=== PATIENT | female | born 1960 | race Caucasian/White ===

== ENCOUNTER 2017-08-10 07:52 | Outpatient (CLI) | payer OTHER ==
[~2017-08-10 07:52] MED LIST: MEDROL PO
== END 2017-08-10 15:33 | disposition home or self-care (01) ==
LOC: SONOGRAMA 07:52
DX: R10.10 Upper abdominal pain, unspecified (principal)

== ENCOUNTER 2017-08-12 07:30 | Outpatient (CLI) | payer OTHER | END 2017-08-12 15:43 | disposition home or self-care (01) | LOC: TOM 07:30 | DX: R10.10 Upper abdominal pain, unspecified (principal); Z86.010 Personal history of colon polyps ==

== ENCOUNTER → 2017-11-24 | Outpatient (CLI) | payer OTHER ==
[~2017-11-24] MED LIST changes: +ORPHENADRI30 MG/1 M1 IM; +TORADOL60 MG IM
== END | disposition home or self-care (01) ==
LOC: LAB 11-22 14:23
DX: D64.9 Anemia, unspecified (principal); E78.2 Mixed hyperlipidemia; E03.9 Hypothyroidism, unspecified; N39.0 Urinary tract infection, site not specified; E55.9 Vitamin D deficiency, unspecified; L68.8 Other hypertrichosis

== ENCOUNTER 2017-12-22 14:26 | Outpatient (CLI) | payer OTHER | END 2017-12-22 14:36 | disposition home or self-care (01) | LOC: NUCLEAR 14:26 | DX: M81.0 Age-related osteoporosis without current pathological fracture (principal) ==

== ENCOUNTER 2018-03-09 15:47 | Outpatient (CLI) | payer OTHER | END 2018-03-09 15:52 | disposition home or self-care (01) | LOC: LAB 15:47 | DX: N95.0 Postmenopausal bleeding (principal) ==

== ENCOUNTER 2018-07-14 15:42 | Outpatient (CLI) | payer OTHER | END 2018-07-14 15:50 | disposition home or self-care (01) | LOC: LAB 15:42 | DX: N95.1 Menopausal and female climacteric states (principal) ==

== ENCOUNTER 2018-09-06 07:12 | Outpatient (CLI) | payer OTHER | END 2018-09-06 07:20 | disposition home or self-care (01) | LOC: LAB 07:12 | DX: N20.0 Calculus of kidney (principal); Z11.3 Encounter for screening for infections with a predominantly sexual mode of transmission ==

== ENCOUNTER 2018-09-08 07:11 | Outpatient (CLI) | payer OTHER | END 2018-09-08 08:04 | disposition home or self-care (01) | LOC: TOM 07:11 | DX: R93.3 Abnormal findings on diagnostic imaging of other parts of digestive tract (principal); Z86.010 Personal history of colon polyps ==

== ENCOUNTER 2018-10-16 07:20 | Outpatient (CLI) | payer OTHER | END 2018-10-16 09:32 | disposition home or self-care (01) | LOC: LAB 07:20 | DX: D50.8 Other iron deficiency anemias (principal); E03.8 Other specified hypothyroidism; E78.2 Mixed hyperlipidemia; I11.9 Hypertensive heart disease without heart failure; E56.8 Deficiency of other vitamins; N39.0 Urinary tract infection, site not specified; Z12.11 Encounter for screening for malignant neoplasm of colon; R19.5 Other fecal abnormalities; E55.9 Vitamin D deficiency, unspecified; N19 Unspecified kidney failure; E11.9 Type 2 diabetes mellitus without complications; R80.8 Other proteinuria; C18.0 Malignant neoplasm of cecum; K92.1 Melena ==

== ENCOUNTER → 2018-11-14 | Outpatient (CLI) | payer OTHER | END | disposition home or self-care (01) | LOC: NUCLEAR 07:00 | DX: K81.1 Chronic cholecystitis (principal) | CPT/HCPCS: 78227; A9537 ==

== ENCOUNTER 2018-12-05 12:24 | Outpatient (CLI) | payer OTHER | END 2018-12-05 12:34 | disposition home or self-care (01) | LOC: LAB 12:24 | DX: D78.89 Other postprocedural complications of the spleen (principal); E53.8 Deficiency of other specified B group vitamins; D64.89 Other specified anemias; N95.1 Menopausal and female climacteric states ==

== ENCOUNTER → 2019-02-05 09:40 | Outpatient (CLI) | payer OTHER | END | disposition home or self-care (01) | LOC: LAB 09:40 | DX: J11.1 Influenza due to unidentified influenza virus with other respiratory manifestations (principal); R50.9 Fever, unspecified; A49.3 Mycoplasma infection, unspecified site ==

== ENCOUNTER → 2019-04-26 10:20 | Outpatient (CLI) | payer OTHER | END | disposition home or self-care (01) | LOC: LAB 10:20 | DX: J11.1 Influenza due to unidentified influenza virus with other respiratory manifestations (principal) ==

== ENCOUNTER 2019-05-08 08:31 | Outpatient (CLI) | payer OTHER | END 2019-05-08 17:00 | disposition home or self-care (01) | LOC: MAMO-SONO 08:31 | DX: Z12.31 Encounter for screening mammogram for malignant neoplasm of breast (principal); R10.2 Pelvic and perineal pain; N60.11 Diffuse cystic mastopathy of right breast; N60.12 Diffuse cystic mastopathy of left breast; Z87.898 Personal history of other specified conditions ==

== ENCOUNTER → 2019-05-11 08:46 | Outpatient (CLI) | payer OTHER | END | disposition home or self-care (01) | LOC: LAB 08:46 | DX: D64.89 Other specified anemias (principal); E78.00 Pure hypercholesterolemia, unspecified; N39.0 Urinary tract infection, site not specified; E03.8 Other specified hypothyroidism; D68.8 Other specified coagulation defects ==

== ENCOUNTER 2019-05-22 07:22 | Outpatient (CLI) | payer OTHER | END 2019-05-22 08:00 | disposition home or self-care (01) | LOC: MRI 07:22 | DX: N95.0 Postmenopausal bleeding (principal); D25.0 Submucous leiomyoma of uterus; R10.2 Pelvic and perineal pain | CPT/HCPCS: 72197 ==

== ENCOUNTER 2019-05-25 07:33 | Outpatient (CLI) | payer OTHER | END 2019-05-25 07:40 | disposition home or self-care (01) | LOC: LAB 07:33 | DX: N39.0 Urinary tract infection, site not specified (principal); E55.9 Vitamin D deficiency, unspecified; E78.2 Mixed hyperlipidemia; D64.89 Other specified anemias; E03.8 Other specified hypothyroidism; E78.00 Pure hypercholesterolemia, unspecified; N95.1 Menopausal and female climacteric states; R68.82 Decreased libido; N91.1 Secondary amenorrhea; N83.209 Unspecified ovarian cyst, unspecified side; R10.2 Pelvic and perineal pain; D25.1 Intramural leiomyoma of uterus ==

== ENCOUNTER → 2019-08-24 | Outpatient (CLI) | payer OTHER | END | disposition home or self-care (01) | LOC: SONOGRAMA 08:26 | DX: R10.2 Pelvic and perineal pain (principal) ==

== ENCOUNTER 2019-11-21 11:44 | Outpatient (CLI) | payer OTHER | END 2019-11-21 11:57 | disposition home or self-care (01) | LOC: LAB 11:44 | DX: E03.8 Other specified hypothyroidism (principal); E56.8 Deficiency of other vitamins; E55.9 Vitamin D deficiency, unspecified; E34.8 Other specified endocrine disorders; E78.2 Mixed hyperlipidemia; N95.1 Menopausal and female climacteric states; N91.1 Secondary amenorrhea; N95.8 Other specified menopausal and perimenopausal disorders ==

== ENCOUNTER 2020-01-28 07:44 | Outpatient (CLI) | payer OTHER | END 2020-01-28 15:00 | disposition home or self-care (01) | LOC: LAB 07:44 | DX: N95.1 Menopausal and female climacteric states (principal); E03.8 Other specified hypothyroidism ==

== ENCOUNTER → 2020-04-22 07:00 | Outpatient (CLI) | payer OTHER | END | disposition home or self-care (01) | LOC: PPH VACUNA 07:00 | DX: Z23 Encounter for immunization (principal) ==

== ENCOUNTER 2020-07-29 15:12 | Outpatient (CLI) | payer OTHER | END 2020-07-29 18:00 | disposition home or self-care (01) | LOC: LAB 15:12 | PROVIDERS: ATTEND General Practice | DX: R05 Cough (principal); Z11.3 Encounter for screening for infections with a predominantly sexual mode of transmission; N95.1 Menopausal and female climacteric states ==

== ENCOUNTER → 2020-09-12 | Outpatient (CLI) | payer OTHER | END | disposition home or self-care (01) | LOC: TOM 16:21 | PROVIDERS: ATTEND Otolaryngology Facial Plastic Surgery | DX: J32.8 Other chronic sinusitis (principal); M95.0 Acquired deformity of nose; J34.2 Deviated nasal septum; J34.3 Hypertrophy of nasal turbinates; R09.82 Postnasal drip ==

== ENCOUNTER 2020-11-10 08:07 | Outpatient (CLI) | payer OTHER | END 2020-11-10 08:24 | disposition home or self-care (01) | LOC: MAMO-SONO 08:07 | PROVIDERS: ATTEND Obstetrics & Gynecology Gynecology | DX: Z12.31 Encounter for screening mammogram for malignant neoplasm of breast (principal); N64.4 Mastodynia; N64.59 Other signs and symptoms in breast ==

== ENCOUNTER 2021-03-11 11:06 | Outpatient (CLI) | payer OTHER | END 2021-03-11 11:10 | disposition home or self-care (01) | LOC: LAB 11:06 | PROVIDERS: ATTEND Emergency Medicine Pediatric Emergency Medicine | DX: Z03.818 Encounter for observation for suspected exposure to other biological agents ruled out (principal) ==

== ENCOUNTER 2021-03-16 14:28 | Outpatient (CLI) | payer OTHER | END 2021-03-16 15:00 | disposition home or self-care (01) | LOC: LAB 14:28 | PROVIDERS: ATTEND Emergency Medicine Pediatric Emergency Medicine | DX: Z03.818 Encounter for observation for suspected exposure to other biological agents ruled out (principal) ==

== ENCOUNTER → 2021-04-24 08:23 | Outpatient (CLI) | payer OTHER | END | disposition home or self-care (01) | LOC: LAB 08:23 | PROVIDERS: ATTEND Internal Medicine Gastroenterology | DX: E03.8 Other specified hypothyroidism (principal); E78.49 Other hyperlipidemia; R10.84 Generalized abdominal pain; K62.5 Hemorrhage of anus and rectum; K50.10 Crohn's disease of large intestine without complications; K52.89 Other specified noninfective gastroenteritis and colitis ==

== ENCOUNTER → 2021-04-24 08:49 | Outpatient (CLI) | payer OTHER | END | disposition home or self-care (01) | LOC: SONOGRAMA 08:49 | PROVIDERS: ATTEND Internal Medicine Gastroenterology | DX: R10.84 Generalized abdominal pain (principal) ==

== ENCOUNTER 2021-05-04 11:03 | Outpatient (CLI) | payer OTHER | END 2021-05-04 11:22 | disposition home or self-care (01) | LOC: LAB 11:03 | PROVIDERS: ATTEND Internal Medicine Gastroenterology | DX: E03.8 Other specified hypothyroidism (principal); E78.49 Other hyperlipidemia; R10.84 Generalized abdominal pain; K62.5 Hemorrhage of anus and rectum; K50.10 Crohn's disease of large intestine without complications; K52.89 Other specified noninfective gastroenteritis and colitis ==

== ENCOUNTER → 2021-05-05 | Outpatient (CLI) | payer OTHER | END | disposition home or self-care (01) | LOC: PPH VACUNA 08:00 | PROVIDERS: ATTEND Emergency Medicine Pediatric Emergency Medicine | DX: Z23 Encounter for immunization (principal) ==

== ENCOUNTER 2021-05-06 08:00 | Outpatient (CLI) | payer OTHER | END 2021-05-06 08:15 | disposition home or self-care (01) | LOC: PPH VACUNA 08:00 | PROVIDERS: ATTEND Emergency Medicine Pediatric Emergency Medicine | DX: Z23 Encounter for immunization (principal) ==

== ENCOUNTER 2021-07-03 09:11 | Outpatient (CLI) | payer OTHER | END 2021-07-03 09:12 | disposition home or self-care (01) | LOC: LAB 09:11 | PROVIDERS: ATTEND Obstetrics & Gynecology Gynecology | DX: N95.1 Menopausal and female climacteric states (principal); E03.8 Other specified hypothyroidism; E78.2 Mixed hyperlipidemia; E55.9 Vitamin D deficiency, unspecified; E56.8 Deficiency of other vitamins; Z13.1 Encounter for screening for diabetes mellitus; R30.0 Dysuria; D51.8 Other vitamin B12 deficiency anemias ==

== ENCOUNTER 2021-07-16 06:54 | Outpatient (CLI) | payer OTHER | END 2021-07-16 07:15 | disposition home or self-care (01) | LOC: MRI 06:54 | PROVIDERS: ATTEND Internal Medicine Gastroenterology | DX: K82.8 Other specified diseases of gallbladder (principal); D18.03 Hemangioma of intra-abdominal structures; K76.89 Other specified diseases of liver | CPT/HCPCS: 74182 ==

== ENCOUNTER 2021-07-27 16:18 | Outpatient (CLI) | payer OTHER | END 2021-07-27 20:20 | disposition home or self-care (01) | LOC: LAB 16:18 | PROVIDERS: ATTEND General Practice | DX: Z20.828 Contact with and (suspected) exposure to other viral communicable diseases (principal) ==

== ENCOUNTER 2021-07-31 10:19 | Outpatient (CLI) | payer OTHER | END 2021-07-31 10:24 | disposition home or self-care (01) | LOC: LAB 10:19 | PROVIDERS: ATTEND General Practice | DX: R05.8 Other specified cough (principal); R50.9 Fever, unspecified; R06.02 Shortness of breath; Z03.818 Encounter for observation for suspected exposure to other biological agents ruled out; Z20.822 Contact with and (suspected) exposure to COVID-19 ==

== ENCOUNTER 2021-11-17 08:00 | Outpatient (CLI) | payer OTHER | END 2021-11-17 08:30 | disposition home or self-care (01) | LOC: PPH VACUNA 08:00 | PROVIDERS: ATTEND Emergency Medicine Pediatric Emergency Medicine | DX: Z23 Encounter for immunization (principal) ==

== ENCOUNTER 2021-12-25 08:07 | Outpatient (CLI) | payer OTHER | END 2021-12-25 08:13 | disposition home or self-care (01) | LOC: LAB 08:07 | PROVIDERS: ATTEND Obstetrics & Gynecology Gynecology | DX: N25.1 Nephrogenic diabetes insipidus (principal) ==

== ENCOUNTER 2022-02-13 12:51 | Outpatient (CLI) | payer OTHER | END 2022-02-13 12:55 | disposition home or self-care (01) | LOC: LAB 12:51 | DX: Z20.828 Contact with and (suspected) exposure to other viral communicable diseases (principal) ==

== ENCOUNTER 2022-03-16 08:34 | Outpatient (CLI) | payer OTHER | END 2022-03-16 09:10 | disposition home or self-care (01) | LOC: MAMO-SONO 08:34 | PROVIDERS: ATTEND Obstetrics & Gynecology Gynecology | DX: Z12.31 Encounter for screening mammogram for malignant neoplasm of breast (principal); N95.1 Menopausal and female climacteric states ==

== ENCOUNTER 2022-04-14 09:10 | Outpatient (CLI) | payer OTHER | END 2022-04-14 09:15 | disposition home or self-care (01) | LOC: PPH VACUNA 09:10 | PROVIDERS: ATTEND Emergency Medicine Pediatric Emergency Medicine | DX: Z23 Encounter for immunization (principal) ==

== ENCOUNTER 2022-04-14 09:24 | Outpatient (CLI) | payer OTHER | END 2022-04-14 15:35 | disposition home or self-care (01) | LOC: RAD 09:24 | PROVIDERS: ATTEND Physical Medicine & Rehabilitation | DX: M17.0 Bilateral primary osteoarthritis of knee (principal) ==

== ENCOUNTER 2022-05-05 07:11 | Outpatient (CLI) | payer OTHER | END 2022-05-05 07:12 | disposition home or self-care (01) | LOC: LAB 07:11 | PROVIDERS: ATTEND General Practice | DX: Z00.00 Encounter for general adult medical examination without abnormal findings (principal); E78.5 Hyperlipidemia, unspecified; E55.9 Vitamin D deficiency, unspecified; N39.0 Urinary tract infection, site not specified; R42 Dizziness and giddiness; R10.9 Unspecified abdominal pain; R10.2 Pelvic and perineal pain ==

== ENCOUNTER → 2022-05-12 09:53 | Outpatient (CLI) | payer OTHER | END | disposition home or self-care (01) | LOC: LAB 09:53 | PROVIDERS: ATTEND Dermatology | DX: Z20.822 Contact with and (suspected) exposure to COVID-19 (principal) ==

== ENCOUNTER 2022-09-15 07:02 | Outpatient (CLI) | payer OTHER | END 2022-09-15 07:03 | disposition home or self-care (01) | LOC: LAB 07:02 | PROVIDERS: ATTEND Dermatology | DX: Z20.822 Contact with and (suspected) exposure to COVID-19 (principal) ==

== ENCOUNTER 2022-10-04 | Outpatient (CLI) | payer OTHER | END 2022-10-04 00:15 | disposition home or self-care (01) | LOC: PPH VACUNA | PROVIDERS: ATTEND Emergency Medicine Pediatric Emergency Medicine | DX: Z23 Encounter for immunization (principal) ==

== ENCOUNTER 2023-03-08 09:19 | Outpatient (CLI) | payer OTHER | END 2023-03-08 09:23 | disposition home or self-care (01) | LOC: LAB 09:19 | PROVIDERS: ATTEND General Practice | DX: E78.5 Hyperlipidemia, unspecified (principal); E55.9 Vitamin D deficiency, unspecified; N39.0 Urinary tract infection, site not specified; R10.9 Unspecified abdominal pain; R42 Dizziness and giddiness; Z00.00 Encounter for general adult medical examination without abnormal findings ==

== ENCOUNTER 2023-03-22 08:58 | Outpatient (CLI) | payer OTHER | END 2023-03-22 09:10 | disposition home or self-care (01) | LOC: MAMO-SONO 08:58 | PROVIDERS: ATTEND General Practice | DX: N64.4 Mastodynia (principal); Z12.31 Encounter for screening mammogram for malignant neoplasm of breast ==

== ENCOUNTER 2023-06-08 07:44 | Outpatient (CLI) | payer OTHER ==
[2023-06-08 08:31] LABS: HEMATOCRIT 40.1 % (36.0-45.00); HEMOGLOBIN 14.1 g/dL (12.0-15.00); MEAN CELL VOLUME 90.4 fL (80.00-100.00); MEAN CORPUSCULAR HEMOGLOBIN 31.7 pg (27.00-32.0); MEAN CORPUSCULAR HGB CONC 35.1 g/dl (32.0-36.0); PLATELET COUNT 206 K/uL (150-450); RED BLOOD COUNT 4.44 M/uL (4.00-6.00); RED CELL DISTRIBUTION WIDTH 12.7 % (11.5-14.5)
== END 2023-06-08 07:55 | disposition home or self-care (01) ==
LOC: LAB 07:44
DX: N95.1 Menopausal and female climacteric states (principal); Z88.2 Allergy status to sulfonamides

== ENCOUNTER 2024-03-07 08:48 | Outpatient (CLI) | payer OTHER | END 2024-03-07 08:57 | disposition home or self-care (01) | LOC: MAMO-SONO 08:48 | PROVIDERS: ATTEND Obstetrics & Gynecology Gynecology | DX: N64.4 Mastodynia (principal) ==

== ENCOUNTER → 2024-03-07 10:14 | Outpatient (CLI) | payer OTHER ==
[2024-03-08 09:11] LABS: TESTOSTERONE,TOTAL < 3.00 ng/dL (3-67)
== END | disposition home or self-care (01) ==
LOC: LAB 10:14
PROVIDERS: ATTEND Obstetrics & Gynecology Gynecology
DX: N95.1 Menopausal and female climacteric states (principal)

== ENCOUNTER 2024-04-17 07:14 | Outpatient (CLI) | payer OTHER ==
[2024-04-17 07:58] LABS: HEMATOCRIT 41.7 % (36.0-45.00); HEMOGLOBIN 14.1 g/dL (12.0-15.00); MEAN CELL VOLUME 92.9 fL (80.00-100.00); MEAN CORPUSCULAR HEMOGLOBIN 31.3 pg (27.00-32.0); MEAN CORPUSCULAR HGB CONC 33.7 g/dl (32.0-36.0); PLATELET COUNT 177 K/uL (150-450); RED BLOOD COUNT 4.49 M/uL (4.00-6.00); RED CELL DISTRIBUTION WIDTH 12.4 % (11.5-14.5)
[2024-04-17 08:16] LABS: URINE APPEARANCE Clear; URINE BILIRRUBIN Negative (NEGATIVE); URINE BLOOD Negative; URINE COLOR Yellow; URINE GLUCOSE Negative (NEGATIVE); URINE KETONE Negative (NEGATIVE); URINE LEUKOCYTE Negative; URINE NITRATE Negative; URINE PROTEIN Negative (NEGATIVE); URINE UROBILINOGEN 0.2 E.U./dl
[2024-04-17 08:20] LABS: URINE BACTERIA 210.4 uL (0.0-1933); URINE EPITHELIAL CELLS 4.7 uL (0.0-38.8); URINE RBC 5.9 uL (0.0-20.8); URINE WBC 3.8 uL (0.0-23.2)
[2024-04-17 08:37] LABS: ALBUMIN 4.3 gm/dL (3.4-5.0); BILIRUBIN TOTAL 0.54 mg/dL (0.3-1.2); CALCIUM 9.5 mg/dL (8.5-10.1); CREATININE SERUM 0.64 mg/dL (0.55-1.02); GFR 93.13; PHOSPHOROUS 3.2 mg/dL (2.5-4.9); POTASSIUM 4.76 mEq/L (3.5-5.1); TOTAL PROTEIN 7.3 gm/dL (6.4-8.2); URIC ACID 4.4 mg/dL (2.5-7.5)
[2024-04-17 08:44] LABS: INR 1.02; PARTIAL THROMBOPLASTIN TIME 26.2 SECONDS (22.0-34.0); PROTHROMBIN TIME 11.1 SECONDS (9.0-11.5)
[2024-04-19 05:06] LABS: hav igm Negative (Negative); hcv Non Reactive (Non Reactive); hep b c Negative (Negative); hep b s ag Negative (Negative)
== END 2024-04-17 07:15 | disposition home or self-care (01) ==
LOC: LAB 07:14
PROVIDERS: ATTEND Plastic Surgery Surgery of the Hand
DX: D68.8 Other specified coagulation defects (principal); E78.00 Pure hypercholesterolemia, unspecified; E83.51 Hypocalcemia; Z11.4 Encounter for screening for human immunodeficiency virus [HIV]; B97.89 Other viral agents as the cause of diseases classified elsewhere; A64 Unspecified sexually transmitted disease; K71.6 Toxic liver disease with hepatitis, not elsewhere classified; E83.30 Disorder of phosphorus metabolism, unspecified; N91.2 Amenorrhea, unspecified; E03.9 Hypothyroidism, unspecified; Z72.89 Other problems related to lifestyle

== ENCOUNTER → 2024-04-17 | Outpatient (CLI) | payer OTHER | END | disposition home or self-care (01) | LOC: RAD 08:10 | PROVIDERS: ATTEND Plastic Surgery Surgery of the Hand | DX: Z01.818 Encounter for other preprocedural examination (principal) ==

== ENCOUNTER → 2024-08-09 06:12 | Outpatient (CLI) | payer OTHER ==
[2024-08-09 07:39] LABS: HEMATOCRIT 39.4 % (36.0-45.00); HEMOGLOBIN 13.3 g/dL (12.0-15.00); MEAN CELL VOLUME 90.3 fL (80.00-100.00); MEAN CORPUSCULAR HEMOGLOBIN 30.5 pg (27.00-32.0); MEAN CORPUSCULAR HGB CONC 33.8 g/dl (32.0-36.0); PLATELET COUNT 181 K/uL (150-450); RED BLOOD COUNT 4.36 M/uL (4.00-6.00); RED CELL DISTRIBUTION WIDTH 12.9 % (11.5-14.5)
[2024-08-09 07:42] LABS: URINE APPEARANCE Clear; URINE BACTERIA 30.5 uL (0.0-1933); URINE BILIRRUBIN Negative (NEGATIVE); URINE BLOOD Negative; URINE COLOR Yellow; URINE GLUCOSE Negative (NEGATIVE); URINE KETONE Negative (NEGATIVE); URINE LEUKOCYTE Negative; URINE NITRATE Negative; URINE PROTEIN Negative (NEGATIVE); URINE UROBILINOGEN 0.2 E.U./dl; URINE WBC 2.6 uL (0.0-23.2)
[2024-08-09 07:45] LABS: URINE EPITHELIAL CELLS 1.2 uL (0.0-38.8)
[2024-08-09 07:47] LABS: ob NEGATIVE (NEGATIVE)
[2024-08-09 07:56] LABS: INR 1.02; PARTIAL THROMBOPLASTIN TIME 25.6 SECONDS (22.0-34.0); PROTHROMBIN TIME 11.1 SECONDS (9.0-11.5)
[2024-08-09 08:44] LABS: BILIRUBIN TOTAL 0.62 mg/dL (0.3-1.2); CALCIUM 9.5 mg/dL (8.5-10.1); CREATININE SERUM 0.56 mg/dL (0.55-1.02); GFR 108.64; GLOBULINA 3.2 G/DL (2.4-3.5); POTASSIUM 4.4 mEq/L (3.5-5.1); TOTAL PROTEIN 7.2 gm/dL (6.4-8.2); TSH 2.15 uIU/mL (0.358-3.74)
[2024-08-09 08:47] LABS: C-REACTIVE PROTEIN 2.31 MG/DL (0.00-0.29)
== END | disposition home or self-care (01) ==
LOC: LAB 06:12
PROVIDERS: ATTEND Internal Medicine
DX: D64.9 Anemia, unspecified (principal); R10.9 Unspecified abdominal pain; E03.9 Hypothyroidism, unspecified; E78.5 Hyperlipidemia, unspecified; R07.9 Chest pain, unspecified; E11.9 Type 2 diabetes mellitus without complications; Z79.01 Long term (current) use of anticoagulants; D50.9 Iron deficiency anemia, unspecified; E78.2 Mixed hyperlipidemia; I11.9 Hypertensive heart disease without heart failure; E56.8 Deficiency of other vitamins; N39.0 Urinary tract infection, site not specified; Z12.11 Encounter for screening for malignant neoplasm of colon; R19.5 Other fecal abnormalities; E55.9 Vitamin D deficiency, unspecified; N19 Unspecified kidney failure

== ENCOUNTER 2024-08-09 06:49 | Outpatient (CLI) | payer OTHER | END 2024-08-09 07:10 | disposition home or self-care (01) | LOC: SONOGRAMA 06:49 | PROVIDERS: ATTEND Internal Medicine | DX: E04.1 Nontoxic single thyroid nodule (principal) ==

== ENCOUNTER → 2024-10-08 12:33 | Outpatient (CLI) | payer OTHER | END | disposition home or self-care (01) | LOC: NUCLEAR 10-03 13:15 | PROVIDERS: ATTEND Internal Medicine Geriatric Medicine | DX: M81.0 Age-related osteoporosis without current pathological fracture (principal); M15.0 Primary generalized (osteo)arthritis ==

== ENCOUNTER 2025-03-05 09:36 | Outpatient (CLI) | payer OTHER | END 2025-03-05 09:37 | disposition home or self-care (01) | LOC: MAMO-SONO 09:36 | PROVIDERS: ATTEND Obstetrics & Gynecology Gynecology | DX: N64.4 Mastodynia (principal); Z12.31 Encounter for screening mammogram for malignant neoplasm of breast ==